=== PATIENT | male | born 2005 | race Caucasian/White ===

== ENCOUNTER 2025-04-07 15:25 | Emergency (ER) | payer SELFPAY ==
[2025-04-07 16:09] LABS: #Basophils 0.05 10x3/uL (0.0-0.2); #Eosinophils 0.04 10x3/uL (0.0-0.7); #Monocytes 0.42 10x3/uL (0.11-0.59); #Neutrophils 7.05 10x3/uL (1.40-6.50); %Basophils 0.5 % (0.0-1.0); %Eosinophils 0.4 % (0.0-10.0); %Lymphocytes 21.8 % (28.0-48.0); %Monocytes 4.3 % (0.0-4.0); %Neutrophils 72.7 % (31.0-61.0); Hematocrit 43.2 % (42.0-52.0); Hemoglobin 15.4 g/dL (14.0-18.0); Mean Corpuscular Hemoglobin 31.8 pg (25.0-35.0); Mean Corpuscular Volume 89.1 fL (78.0-98.0); Platelet Count 223 10x3/uL (130-400); Red Blood Cell (RBC) Count 4.85 mill/uL (4.00-5.20); White Blood Cell (WBC) Count 9.70 10x3/uL (4.8-10.8)
[2025-04-07 17:06] LABS: ALT (SGPT) 17 U/L (Less than 45); AST (SGOT) 35 U/L (11-34); Albumin 4.6 g/dL (3.1-4.5); Alkaline Phosphatase 70 U/L (50-130); Anion Gap 11 mmol/L (10-20); BUN (Urea Nitrogen) 15 mg/dL (8.4-21.0); Bilirubin, Total 0.6 mg/dL (0.3-1.2); Calc. Creatinine Clearance 0 mL/min (70-130); Calcium 9.4 mg/dL (7.8-10.44); Carbon Dioxide 22 mmol/L (22-29); Chloride 105 mmol/L (98-107); Globulin 2.4 g/dL (2.4-3.5); Glucose 100 mg/dL (70-105); Potassium 3.9 mmol/L (3.5-5.1); Sodium 134 mmol/L (136-145)
[2025-04-07 17:07] LABS: Acetaminophen Less than 10 mcg/mL (Less than 10); Salicylate Less than 8.0 mg/dL (Less than 8.0)
[2025-04-07 18:14] LABS: CAUTI Indications for Culture Pelvic or flank pain; Glucose, Urine (Dipstick) Normal (Negative); Leukocyte Negative Leu/uL (Negative); Protein, Urine (Dipstick) Negative (Neg-Trace); RBC/HPF 0-3 HPF (0-3); Specific Gravity, Urine 1.011 (1.002-1.036); WBC/HPF 0-3 HPF (0-3)
[2025-04-07 18:16] LABS: Bacteria/HPF 1+ HPF (None Seen)
[2025-04-07 18:17] LABS: Urine Culture Reflex No No
[2025-04-07 18:18] LABS: Cocaine Metabolite Screen Negative (Negative); THC/Cannabinoid Screen Negative (Negative); Tricyclic Screen Negative (Negative)
== END 2025-04-07 22:56 | disposition home or self-care (01) ==
LOC: ERS 15:25
DX: S61.411A Laceration without foreign body of right hand, initial encounter (principal); F32.A Depression, unspecified; X78.9XXA Intentional self-harm by unspecified sharp object, initial encounter
CPT/HCPCS: 80053; 80306; 80307; 81001; 84443; 85025; 99285